=== PATIENT | female | born 1990 | race Caucasian/White ===

== ENCOUNTER 2020-11-05 10:13 | Outpatient (REF) | payer BC, SELFPAY ==
[2020-11-05 13:54] LABS: HCT 39.9 % (36.0-46.0); MCH 29.3 pg (27.0-33.0); MCHC 32.6 % (32.0-36.0); MCV 90.1 fL (80-95); MPV 11.2 fL (8.0-11.0); Platelet Count 275 10^3/uL (130-400); RBC 4.43 10^6/uL (3.93-5.22); RDW 12.7 % (11.7-14.6); RDW-SD 41.8 fL; WBC 6.78 10^3/uL (4.4-10.8)
[2020-11-05 14:20] LABS: Hemoglobin A1C 5.4 % (<5.7)
[2020-11-05 14:21] LABS: ALT 33 U/L (14-59); AST 18 U/L (15-37); Albumin 4.1 g/dL (3.4-5.0); Alkaline Phosphatase 66 U/L (46-116); Anion Gap 8.7 mmol/L (3-11); BUN 12 mg/dL (7-18); Bilirubin, Total 0.6 mg/dL (0.2-1.0); CO2 27.3 mmol/L (21.0-32.0); CREATININE 0.8 mg/dL (0.55-1.02); Calculated LDL 144 mg/dL (<100); Chloride 105 mmol/L (98-107); Cholesterol 212 mg/dL (<200); Glucose 94 mg/dL (74-106); HDL Cholesterol 47 mg/dL (40-60); Potassium 4.3 mmol/L (3.5-5.1); Sodium 141 mmol/L (136-145); TSH 2.82 uIU/mL (0.36-3.74); Triglyceride 105 mg/dL (<150)
[2020-11-06 00:52] LABS: Vitamin D 25 Total 13.5 ng/mL (30-100)
== END 2020-11-05 10:14 | disposition home or self-care (01) ==
LOC: NCHCN 10:13
PROVIDERS: PCP Nurse Practitioner Family; Visit Provider Registered Nurse
DX: F41.8 Other specified anxiety disorders (principal); E66.9 Obesity, unspecified
CPT/HCPCS: 80053; 80061; 82306; 85027; 83036; 84443

== ENCOUNTER 2021-01-14 16:37 | Outpatient (REF) | payer BC, SELFPAY ==
[2021-01-15 01:45] LABS: Vitamin D 25 Total 25.2 ng/mL (30-100)
== END 2021-01-14 16:38 | disposition home or self-care (01) ==
LOC: NCHCN 16:37
PROVIDERS: PCP Nurse Practitioner Family; Visit Provider Registered Nurse
DX: E55.9 Vitamin D deficiency, unspecified (principal)
CPT/HCPCS: 82306

== ENCOUNTER 2021-11-04 08:55 | Outpatient (REF) | payer BC, SELFPAY ==
[2021-11-04 16:52] LABS: HCT 39.2 % (36.0-46.0); HGB 12.6 g/dL (11.2-15.7); MCH 28.7 pg (27.0-33.0); MCHC 32.1 % (32.0-36.0); MCV 89 fL (80-95); MPV 11.6 fL (8.0-11.0); Platelet Count 264 10^3/uL (130-400); RBC 4.39 10^6/uL (3.93-5.22); RDW 13.2 % (11.7-14.6); RDW-SD 42.9 fL; WBC 8.41 10^3/uL (4.4-10.8)
[2021-11-04 17:45] LABS: ALT 36 U/L (14-59); AST 28 U/L (15-37); Albumin 3.5 g/dL (3.4-5.0); Alkaline Phosphatase 71 U/L (46-116); Anion Gap 10.3 mmol/L (3-11); BUN 15 mg/dL (7-18); Bilirubin, Total 0.3 mg/dL (0.2-1.0); CO2 23.7 mmol/L (21.0-32.0); CREATININE 0.9 mg/dL (0.55-1.02); Calcium 8.8 mg/dL (8.5-10.1); Chloride 103 mmol/L (98-107); Estimated GFR 88.75 (mL/min/1.73m2); Glucose 99 mg/dL (74-106); Potassium 4.4 mmol/L (3.5-5.1); Sodium 137 mmol/L (136-145); TSH (W/Ref FT4) 2.93 uIU/mL (0.36-3.74); Total Protein 7.8 g/dL (6.4-8.2)
[2021-11-04 17:50] LABS: Hemoglobin A1C 5.3 % (<5.7)
== END 2021-11-04 08:56 | disposition home or self-care (01) ==
LOC: NCHCN 08:55
PROVIDERS: PCP Nurse Practitioner Family; Visit Provider Nurse Practitioner Family
DX: E66.01 Morbid (severe) obesity due to excess calories (principal); F41.8 Other specified anxiety disorders
CPT/HCPCS: 80053; 85027; 83036; 84443

== ENCOUNTER 2021-12-17 05:06 | Outpatient (CLI) | payer BC, SELFPAY ==
--- NOTE | 2021-12-17 15:00 | NS.NUTBLAN_ITS ---
Nuria was referred for weight management education. 31 years old 5'10 323 lbs BMI: 47 During high school and college she weighted around 210 lbs- played competitive soft ball. 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 Strong family hx of obesity and diabetes. Goal Wt: 200 lbs 5 lbs weight loss per month- in 2 years should be able to lose 120 lbs Educated Nuria on how to follow a lower carb, high protein meal plan that is tailored to her life style. Recommend 3 meals daily with most of the carb eaten in beginning of day. Will need 60 minutes exercise daily to maintain weight loss. Recommend protein shakes if skips meals. Continue with current vitamin regime. Follow up monthly. Next appt. 01/19/22 at 3:30 pm.
== END 2021-12-17 05:07 | disposition home or self-care (01) ==
LOC: DS 05:06
PROVIDERS: PCP Nurse Practitioner Family; Visit Provider Dietitian, Registered
DX: E66.01 Morbid (severe) obesity due to excess calories (principal)
CPT/HCPCS: 97802

== ENCOUNTER 2022-12-29 11:26 | Outpatient (REF) | payer BC, SELFPAY ==
[2022-12-29 15:52] LABS: ALT 34 U/L (14-59); AST 26 U/L (15-37); Albumin 3.8 g/dL (3.4-5.0); Alkaline Phosphatase 74 U/L (46-116); Anion Gap 9.3 mmol/L (3-11); BUN 11 mg/dL (7-18); Bilirubin, Total 0.6 mg/dL (0.2-1.0); CO2 26.7 mmol/L (21.0-32.0); CREATININE 0.8 mg/dL (0.55-1.02); Calcium 9.4 mg/dL (8.5-10.1); Chloride 102 mmol/L (98-107); Estimated GFR 101.59 (mL/min/1.73m2); FREE T4 0.93 ng/dL (0.76-1.46); Glucose 99 mg/dL (74-106); Potassium 4.3 mmol/L (3.5-5.1); Sodium 138 mmol/L (136-145); TSH 2.93 uIU/mL (0.36-3.74); Total Protein 8.4 g/dL (6.4-8.2)
== END 2022-12-29 11:27 | disposition home or self-care (01) ==
LOC: NCHCN 11:26
PROVIDERS: PCP Nurse Practitioner Family; Visit Provider Nurse Practitioner Family
DX: E66.9 Obesity, unspecified (principal); Z68.41 Body mass index [BMI] 40.0-44.9, adult
CPT/HCPCS: 80053; 84439; 84443

== ENCOUNTER 2024-03-16 13:49 | Outpatient (REF) | payer BC, SELFPAY ==
--- NOTE | 2024-03-16 09:50 | PAPFT_PTH ---
PATIENT: Nuria Chowdhury LOC: [facility] U#:[id number] AGE/SX: 33/F ROOM: RE03/16/[address]: Piper Chavez : 1990 BED: DIS: 03/16/2024 SPEC #: [id number] RECD: 03/16/24 17:47 STATUS: KAYLEEN REDiana #: [id number] HORTENCIA: 03/16/24 09:[address]: Piper Chavez DEPT: [facility] Cytology RECD BY: May Mensah ENTERED: 03/16/24 17:47 SP TYPE: PAPFT HOMER DR: JESUS HAMEED NP Tissues: 1 - CX/ENDOCX FOR PAP SMEARS Procedures: PAP THIN PREP/[facility] Screening HPV DNA PROBE Comments: [id number] (HPV 16 & 18/45)
== END 2024-03-16 13:50 | disposition home or self-care (01) ==
LOC: NCHCN 13:49
PROVIDERS: PCP Nurse Practitioner Family; Visit Provider Family Medicine
DX: Z11.51 Encounter for screening for human papillomavirus (HPV) (principal); Z01.419 Encounter for gynecological examination (general) (routine) without abnormal findings; N76.0 Acute vaginitis
CPT/HCPCS: 88142; 87624

== ENCOUNTER 2024-07-28 17:33 | Emergency (ER) | payer BC, SELFPAY ==
[2024-07-28 17:38] VITALS: BP 137/85; PULSE 83; RESP 17; TEMP 36.6; O2SAT 97
--- NOTE | 2024-07-28 17:49 | W.ED.GENAD ---
Discharge Plan Disposition Patient Disposition: Home Condition: Improving Discharge Details Clinical Impression: Finger laceration Primary Care Provider: JESUS HAMEED ED Provider: Tamiko Painter Home Meds and New Rx's Prescriptions: No Action bupropion HCl [Wellbutrin XL] 300 mg tablet extended release 24 hr 300 mg PO QAM lisdexamfetamine [Vyvanse] 20 mg capsule 20 mg PO DAILY nystatin 100,000 unit/gram powder 1 applic topical BID Classic 28 mg iron- 800 mcg tablet 1 tab PO DAILY cholecalciferol (vitamin D3) 50 mcg (2,000 unit) capsule 50 mcg PO DAILY coQ10 (ubiquinol) 2 cap PO DAILY Discharge Instructions Instructions: Laceration Repair With Glue ED Additional Instructions: Glue will wear away with time. If the glue comes off and you still have a wound please keep it covered. Monitor for signs of infection. Discharge Data Discharge Physician: Tamiko Painter HPI General Date/Time Provider Initiated Documentation: 07/28/24 17:38. HPI Narrative: 33-year-old female presents for evaluation of finger laceration. Patient cut the pad of her right second finger on a piece of metal. The bleeding is controlled at this time. Tetanus is up-to-date. No numbness or tingling. Able to fully range finger. The wound does open with range of motion of finger. Related Data Home Medications ?Medication ?Instructions ?Recorded ?Confirmed bupropion HCl 300 mg 24 hr tablet, 300 mg PO QAM 04/02/24 07/28/24 extended release (Wellbutrin XL) cholecalciferol (vitamin D3) 50 50 mcg PO DAILY 04/02/24 07/28/24 mcg (2,000 unit) capsule lisdexamfetamine 20 mg capsule 20 mg PO DAILY 04/02/24 07/28/24 (Vyvanse) nystatin 100,000 unit/gram topical 1 applic topical BID 04/02/24 07/28/24 powder vits no.126-ferrous fum 1 tab PO DAILY 04/02/24 07/28/24 28 mg iron-folic acid 800 mcg tablet (Classic ) coQ10 (ubiquinol) 2 cap PO DAILY 07/28/24 07/28/24 Allergies Allergy/AdvReac Type Severity Reaction Status Date / Time No Known Allergies Allergy Verified 07/28/24 17:39 General Stated Complaint: Laceration GILBERT: 4 Review of Systems Narrative: Remainder of review of systems otherwise negative except for as noted in the HPI x 5. Exam Narrative Exam Narrative: General: non-toxic, no respiratory distress, comfortable HEENT: normocephalic, atraumatic, lids and lashes normal, PERRL, EOMI, anicteric sclera, no conjunctival injection, moist oral mucosa Musculoskeletal: 1.5 cm linear laceration to pad of right second finger, full flexion and extension to DIP, PIP, MCP, 2+ radial pulses intact, sensation tact, otherwise full range of motion of arms and legs, no tenderness to palpation. no clubbing, cyanosis, or edema Neurologic: appropriate for age, strength normal Psych: alert and oriented Skin: As above, otherwise no petechiae, no lesions, warm and dry Course Vital Signs Vital signs: Vital Signs Temperature 36.6 C 07/28/24 17:38 Pulse 83 07/28/24 17:38 Respiratory Rate 17 07/28/24 17:38 Blood Pressure 137/85 07/28/24 17:38 Pulse Oximetry 97 07/28/24 17:38 Temperature 36.6 C 07/28/24 17:38 Temperature Source Oral 07/28/24 17:38 Pulse 83 07/28/24 17:38 Respiratory Rate 17 07/28/24 17:38 Blood Pressure 137/85 07/28/24 17:38 Pulse Oximetry 97 07/28/24 17:38 Oxygen Delivery Method Room Air 07/28/24 17:38 Oxygen Flow Rate 0 07/28/24 17:38 Pain Level 1 07/28/24 17:38 Procedure Laceration Laceration 1: Date of Procedure: 07/28/24 Time of procedure: 18:00 Provider that performed the procedure: Tamiko Chester Time Out Performed: Yes Patient Consented: Verbally Site: other (Pad second finger) Side (If applicable): right Description: linear Depth: simple, single layer Pre-repair:: wound explored Skin layer closed with: other (Surgical glue) Medical Decision Making 33-year-old female presents for evaluation of laceration to pad right second finger. Her tetanus is up-to-date. She is neurologically intact. We discussed the possibility of surgical glue versus suturing. Patient opted for surgical glue. I do think that is reasonable. We have discussed wound care. She understands indications to return. PFSH All Active Problems Finger laceration (Acute) Depression with anxiety (Acute) Medical History Eating disorder H/o disordered eating - sees therapist [place] [facility] [place] [place] Family History Other Breast cancer Diabetes Heart disease Hypertension Social History Smoking/Tobacco Use Status: Never Second Hand Exposure: No Smoking risk assessment performed?: Yes Alcohol Intake: current Drug use: Occasionally Substance use type: marijuana Household members: spouse current occupation: member service specialist Sexually active: Yes Do you think of yourself as: straight/heterosexual Current gender identity: female What is your relationship status?: Panel score (0-1 are the most socially isolated patients): 1 What type of physical activity do you participate in: walking and regular exercise Frequency: 3-4 times per week Seatbelt use: always Helmet use: Yes Do you feel safe at home: Yes Female Reproductive History Menstrual control method: progestin IUCD History History 0 Para Hx # Term Pregnancies Multiple births Hx # Pregnancies Ectopic pregnancies AB induced Hx Number of Living Children AB spontaneous
== END 2024-07-28 18:21 | disposition home or self-care (01) ==
LOC: ER 17:59
PROVIDERS: Emergency Provider Emergency Medicine Emergency Medical Services; PCP Nurse Practitioner Family
DX: S61.210A Laceration without foreign body of right index finger without damage to nail, initial encounter (principal); W26.8XXA Contact with other sharp object(s), not elsewhere classified, initial encounter; Y92.89 Other specified places as the place of occurrence of the external cause
CPT/HCPCS: 12001; 99283

== ENCOUNTER 2024-11-19 03:35 | Outpatient (CLI) | payer BC, SELFPAY ==
[2024-11-19 15:33] LABS: Abs Immature Grans 0.02 10^3/uL (0.0-0.06); HCT 36.1 % (36.0-46.0); HGB 12.3 g/dL (11.2-15.7); Immature Grans % 0.2 %; MCH 30.1 pg (27.0-33.0); MCHC 34.1 % (32.0-36.0); MCV 88 fL (80-95); MPV 10.6 fL (8.0-11.0); Platelet Count 281 10^3/uL (130-400); RBC 4.09 10^6/uL (3.93-5.22); RDW 13.2 % (11.7-14.6); RDW-SD 42.3 fL; WBC 8.67 10^3/uL (4.4-10.8)
[2024-11-19 16:27] LABS: Hemoglobin A1C 5.0 % (<5.7)
[2024-11-20 10:05] LABS: Hepatitis C Ab w Rflx HCV PCR Negative (Negative)
[2024-11-20 10:21] LABS: HIV-1/2 Ag & Ab Screen Negative (Negative)
[2024-11-20 10:51] LABS: Rubella IgG Ab (UVM) Positive (See Note)
[2024-11-21 19:44] LABS: Syphilis IgG w/Reflex Nonreactive (Nonreactive)
== END 2024-11-19 03:36 | disposition home or self-care (01) ==
LOC: LBO 03:35
PROVIDERS: Advanced Practice Midwife; PCP Nurse Practitioner Family; Visit Provider Advanced Practice Midwife
DX: Z34.91 Encounter for supervision of normal pregnancy, unspecified, first trimester; O30.001 Twin pregnancy, unspecified number of placenta and unspecified number of amniotic sacs, first trimester
CPT/HCPCS: 36415; 81220; 81222; 81329; 86787; 86803; 86850; 86900; 86901; 87340; 87389; 83036; 85025; 86762; 86780

== ENCOUNTER 2024-11-19 13:26 | Outpatient (REF) | payer BC, SELFPAY | END 2024-11-19 13:27 | disposition home or self-care (01) | LOC: LBN 13:26 | PROVIDERS: PCP Nurse Practitioner Family; Visit Provider Advanced Practice Midwife | DX: Z34.91 Encounter for supervision of normal pregnancy, unspecified, first trimester (principal) | CPT/HCPCS: 87086 ==

== ENCOUNTER 2025-01-14 19:25 | Outpatient (REF) | payer BC, SELFPAY | END 2025-01-14 19:26 | disposition home or self-care (01) | LOC: LBN 19:25 | PROVIDERS: PCP Nurse Practitioner Family; Visit Provider Advanced Practice Midwife | DX: Z34.91 Encounter for supervision of normal pregnancy, unspecified, first trimester (principal) | CPT/HCPCS: 87077; 87086; 87186 ==